=== PATIENT | female | born 1970 | race Caucasian/White ===

== ENCOUNTER 2018-10-12 23:36 | Emergency (ER) | payer MEDICAID ==
[~2018-10-12] VITALS: Ht 175.3 cm; Wt 81.8 kg
[2018-10-13 04:57] LABS: APPEARANCE,URINE CLEAR (CLEAR); BILIRUBIN,URINE NEGATIVE (NEGATIVE); GLUCOSE, URINE (UA) NEGATIVE (NEGATIVE); KETONES,URINE NEGATIVE (NEGATIVE); LEUKOCYTE ESTERASE ,URINE NEGATIVE (NEGATIVE); NITRATE,URINE NEGATIVE (NEGATIVE); OCCULT BLOOD,URINE NEGATIVE (NEGATIVE); PH,URINE 5.5 (5.0-8.0); PROTEIN,URINE NEGATIVE (NEGATIVE); UROBILINOGEN,URINE 0.2 mg/dL (<=1.0)
[2018-10-13 05:02] LABS: AMPHET/METH SCREEN,URINE NEGATIVE (NEGATIVE); BARBITURATE SCREEN, URINE NEGATIVE (NEGATIVE); BENZODIAZEPINES SCREEN,URINE NEGATIVE (NEGATIVE); CANNABINOID SCREEN,URINE NEGATIVE (NEGATIVE); COCAINE SCREEN,URINE NEGATIVE (NEGATIVE); METHADONE SCREEN, URINE NEGATIVE (NEGATIVE); OPIATE SCREEN,URINE NEGATIVE (NEGATIVE); PHENCYCLIDINE SCREEN,URINE NEGATIVE (NEGATIVE)
[2018-10-13] MEDS: CefTRIAXone SODIUM 1 GM/VIAL IM ONE (05:41)
[2018-10-13] MEDS: LIDOCAINE/PF 1% 2 ML VIAL IM ONE (05:41)
[2018-10-13] MEDS: IBUPROFEN 600 MG TABLET PO ONE (05:42)
[2018-10-13] MEDS: AZITHROMYCIN 250 MG TABLET PO ONE (05:42)
[2018-10-13 05:44] VITALS: BP 114/77
== END 2018-10-13 06:06 | disposition home or self-care (01) ==
LOC: EMS 23:38
DX: A64 Unspecified sexually transmitted disease (principal); M79.18 Myalgia, other site; F17.210 Nicotine dependence, cigarettes, uncomplicated; Z59.0 Homelessness
CPT/HCPCS: 80307; 81003; 81025; 96372; 99283; 99406; J0696; J3490